=== PATIENT | male | born 1990 | race Caucasian/White ===

== ENCOUNTER 2018-03-27 13:09 | Emergency (ER) | payer MEDICAID ==
[~2018-03-27] VITALS: Ht 175.3 cm; Wt 83.9 kg
[~2018-03-27 13:09] MED LIST: HYDACE5 PO; IBUP800 PO; PENVK500 PO
[2018-03-27] MEDS ORDERED: Bactrim Ds Tab1 EACH PO (13:40)
== END 2018-03-27 13:43 | disposition home or self-care (01) ==
LOC: ER 13:09
DX: L02.413 Cutaneous abscess of right upper limb (principal); Z88.1 Allergy status to other antibiotic agents; F17.200 Nicotine dependence, unspecified, uncomplicated
CPT/HCPCS: 10060; 87070; 87075; 87205; 99283